=== PATIENT | female | born 1970 | race Caucasian/White ===

== ENCOUNTER 2016-12-03 06:46 | Emergency (ER) | payer OTHER ==
[~2016-12-03] VITALS: Ht 170.2 cm; Wt 84.1 kg
[~2016-12-03 06:46] MED LIST: IBUP400T22 PO; METF-495 PO; TOPI50TA88 PO
[2016-12-03 06:49] VITALS: BP 121/79; PULSE 66; RESP 16; O2SAT 98
--- NOTE | 2016-12-03 06:55 | ED.REPORT ---
HPI-Head Prob / Injury Date of Service Dec 03, 2016 ED Provider: The patient is a 46 year old female with history of asthma, fibromyalgia, and migraines, who presents to the emergency department complaining of a headache. The patient fell off her horse about 2 weeks ago. She was wearing a helmet and landed on her shoulder and ribs. She does not believe she hit her head and she did not lose consciousness. After the fall she immediately developed a headache that lasted for about 15 minutes. She felt sore for a few days but 3-4 days after the fall she developed a headache later in the day. Since then the headache has been starting earlier in the day and the severity is increasing. Her pain is improved when lying flat. She also reports decreased appetite and an episode of vertigo. Her shoulder and rib pain has improved. She denies neck pain, visual changes, vomiting. Nursing Notes Stated Complaint: HEADACHE/FELL OFF A HORSE Chief Complaint: Head, Face, Neck Trauma Nursing Notes Reviewed: Yes Allergies: Coded Allergies: oxycodone HCl (Verified Allergy, Unknown, 11/04/14) Scheduled Metformin ER (Metformin ER) 500 Mg Tab.er.24 500 MG PO BIDWM Topiramate (Topiramate) 50 Mg Tablet 50 MG PO DAILY Scheduled PRN Ibuprofen (Ibuprofen) 400 Mg Tablet 800 MG PO QID PRN PRN For Pain General Time Seen by Provider: 07:04 Chief Complaint Other (headache) Hx Obtained From: Patient Arrived By: Walk-in Onset Occurred: More than a week ago... Symptom Duration: Waxes and wanes Quality: Painful Severity: Current: Moderate Severity: Maximum: Severe Recent Healthcare: No recent doctor visit, No recent hospitalization Similar Sx Previous: No Risk-Head Prob / Injury Head CT Imaging Patient Presents WITHOUT: Loss of Conciousness, PROCEED W/ CONSIDERATIONS Consider Non Contrast CT for: Fall > 3ft. Severe Headache RF Statements: Risk factors reviewed Past Medical History Past Medical History Chronic muscle pain - fibromyalgia Migraines Reports: Asthma Past Surgical History Cholecystectomy Arm surgery Family History Noncontributory Smoking History Former Smoker, Never Smoker Social History Alcohol Use: "Social" Drug Use: Denies drug use Other Social History: Good social support, , Local resident Ambulatory Status Independent Review of Systems Review of Systems Note: +decreased appetite GI: Denies: Vomiting Musculoskeletal: Reports: Joint pain, Denies: Neck pain Neurologic: Reports: Dizziness (1 episode), Headache, Denies: Vision change Complete sys rev & neg: except as marked. Cardiovascular: Reports: Chest pain (rib pain) Physical Exam Initial Vital Signs Vital Signs (First) Date Time Temp Pulse Resp B/P Pulse Ox O2 Delivery O2 Flow Rate FiO2 12/03/16 06:49 36.8 66 16 121/79 98 Room Air Initial VS: Reviewed Respiratory: Breath sounds normal, Clear to auscultation, No respiratory distress Cardiovascular: Regular rate & rhythm, Heart sounds normal, Intact distal pulses Abdomen / GI: Soft, Non-tender, No guarding, No rebound, No distention Lymphatic: No lymphadenopathy Extremities: Vascular intact, Neuro intact, No swelling, No tenderness Skin: Warm, Dry, No cyanosis Psychiatric: Mood/affect normal, Behavior normal, Normal thought content General/Constitutional: Awake, Alert Head / Eyes: Atraumatic, Normocephalic, PERRL, EOMI, No nystagmus, No periorbital swelling, Conjunctiva NL ENT: Atraumatic, Airway patent, Mucous membranes moist, Pharynx NL, Tympanic membs NL, Ext aud canal NL Neck: Atraumatic, Supple, Full range of motion, No swelling, Non-tender, No midline vertebral tend, No masses Neurologic: Oriented X3, Speech NL, No motor deficits, No sensory deficits, Cerebellar NL, Memory NL Interpretation & Diagnostics Lab Results Interpretation Test 12/03/16 08:14 12/03/16 08:20 CT Head Interpretation IMPRESSION: No acute intracranial process. Dictated by: Suleman Villalta M.D. on 12/03/2016 at 8:14 Study: Head CT no contrast Interpretation / Wet Read by: Interpret - Radiologist Re-Eval/Medical Decision Source of Hx: Old records, Family Re-Evaluation/Progress : Time of Eval: 08:25 Re-Evaluation/Progress Note: Rechecked the patient. Discussed plan for discharge. All questions were addressed. Counseled Regarding: Diagnosis, Need for follow-up, When/why to return to ED Discharge & Departure Primary Impression: Headache Headache type: unspecified Headache chronicity pattern: unspecified pattern Intractability: not intractable Qualified Code: R51 - Headache Additional Impressions: Fall from horse Encounter type: initial encounter Qualified Code: V80.010A - Animal-rider injured by fall from or being thrown from horse in noncollision accident, initial encounter Concussion Encounter type: initial encounter Loss of consciousness presence/duration: without LOC Qualified Code: S06.0X0A - Concussion without loss of consciousness, initial encounter Disposition: Home All VS Reviewed: Yes Condition: Stable Patient Instructions: Acute Headache (ED), Concussion (ED) Additional Instructions: Thank you for entrusting us with your care today. Your head CT today is reassuring. There is no evidence of any intracranial bleeding or skull fractures. Your headache may be a spinal headache which means it is caused by a small spinal fluid leak. You can take ibuprofen and Tylenol as needed. You should followup with your regular doctor next week if your symptoms are not gone. Make sure to rest and drink plenty of fluids. I recommend not riding your horse until this headache is gone. Do not participate in any activity where you could reinjure your head. When your headache is gone you can do an exertional activity to test it. As long as you cannot elicit a headache you are okay to continue that activity. Seek care for increased pain, confusion, slurred speech , facial droop, visual changes, numbness, weakness, vomiting, fever, or any other new or concerning symptoms. Referrals: Jim Viveros MD (PCP) Scribe Attestation Portions of this note were transcribed by Ruth Nichole. I, Dr. Santiago personally performed the history, physical exam and medical decision-making; I reviewed and confirmed the accuracy of the information in the transcribed note. Signed by: Melodie Mccullough, 12/03/2016 at 0900. copies to: Jim Viveros MD, Kirk H MD Dec 03, 2016 06:55 Ruth Nichole Dec 03, 2016 07:09
[2016-12-03] MEDS ORDERED: 0.9% Sodium Chloride 1,000 ML IV ONE (07:09)
[2016-12-03] MEDS ORDERED: Dexamethasone 10 mg/mL Inj IVPUSH ONE (07:10)
[2016-12-03] MEDS ORDERED: MetoCLOpramide 5 mg/mL 2 mL Inj IVPUSH ONE (07:10)
--- NOTE | 2016-12-03 08:18 | DRSVH ---
PROCEDURE: CT BRAIN WITHOUT CONTRAST ([id number]) INDICATIONS: trauma TECHNIQUE: Noncontrast 4.5 mm thick angled axial sections acquired from the foramen magnum to the vertex, with c oronal reformats. COMPARISON: None. FINDINGS: Image quality: Excellent. CSF spaces: Basal cisterns are patent. No extra-axial fluid collections. Ventricles are normal in size and shape. Brain: No midline shift. No intracranial masses or hemorrhage. Damon-white matter interface is norm al. Incidental, possible subcentimeter calcified meningioma versus inner table exostosis seen in the right frontal region. Skull and face: Calvarium and visualized facial bones are intact, without suspicious lesions. Sinuses: Visualized sinuses and mastoids are clear. IMPRESSION: No acute intracranial process. Dictated by: Suleman Villalta M.D. on 12/03/2016 at 8:14 Approved by: Suleman Villalta M.D. on 12/03/2016 at 8:16
[2016-12-03 09:08] VITALS: BP 120/64; PULSE 57; RESP 20; O2SAT 98
== END 2016-12-03 09:09 | disposition home or self-care (01) ==
LOC: SED 06:46
DX: S06.0X0A Concussion without loss of consciousness, initial encounter (principal); V80.010A Animal-rider injured by fall from or being thrown from horse in noncollision accident, initial encounter; Y92.9 Unspecified place or not applicable; Y93.52 Activity, horseback riding; Y99.8 Other external cause status; J45.909 Unspecified asthma, uncomplicated; M79.7 Fibromyalgia; G43.909 Migraine, unspecified, not intractable, without status migrainosus; Z79.84 Long term (current) use of oral hypoglycemic drugs; Z88.5 Allergy status to narcotic agent
CPT/HCPCS: 70450; 96361; 96374; 96375; 99284; J1100; J1200; J1885; J2765; J7030